=== PATIENT | female | born 1950 | race American Indian/Alaskan Native ===

== ENCOUNTER 2017-11-03 06:06 | Day surgery (SDC) | payer MEDICARE ==
[2017-11-03] MEDS ORDERED: ECOTRIN PO ONE ×2 (06:36→06:42)
[2017-11-03] MEDS ORDERED: NACL 0.9% 500 ML 500 ML ONE (06:41)
[2017-11-03] MEDS ORDERED: NACL 0.9% 500 ML 500 ML IV SCH (07:00)
[2017-11-03 07:05] LABS: Basophils # (Auto) 0.2 K/mm3 (0.0-0.1); Basophils % (Auto) 1.4 % (0.0-1.8); Eosinophils # (Auto) 0.2 K/mm3 (0.0-0.4); Hematocrit 39.2 % (30.3-42.9); Hemoglobin 13.4 gm/dl (10.1-14.3); Lymphocytes # (Auto) 4.1 K/mm3 (1.2-5.4); Lymphocytes % (Auto) 36.2 % (13.4-35.0); Mean Corpuscular HGB Conc 34 % (30-34); Mean Corpuscular Hemoglobin 33 pg (28-32); Mean Corpuscular Volume 97 fl (79-97); Monocytes % (Auto) 8.8 % (0.0-7.3); Platelet Count 305 K/mm3 (140-440); Red Blood Count 4.05 M/mm3 (3.65-5.03); Red Cell Distribution Width 13.9 % (13.2-15.2)
[2017-11-03 07:19] LABS: INR 0.88 (0.87-1.13)
[2017-11-03 07:34] LABS: BUN/Creatinine Ratio 19; Blood Urea Nitrogen 19 mg/dL (7-17); Calcium 9.1 mg/dL (8.4-10.2); Hemolysis Index 17
[2017-11-03] MEDS ORDERED: HEPARIN/NS 5000 UNIT/500ML(CATH LAB) 1,000 ML IR ONE (08:30)
[2017-11-03] MEDS ORDERED: NITROGLYCERIN SYRINGE 0 ML ONE (08:31)
[2017-11-03] MEDS: KCL 10 MEQ in NACL 0.9% 100 ML IV SCH ×3 (08:36→09:53)
[2017-11-03] MEDS ORDERED: KCL 10MEQ/100ML 10 MEQ/100 ML BAG IV SCH (09:00)
[2017-11-03] MEDS: XYLOCAINE 2% INFILTRATI ONE ×2 (09:37→09:49)
[2017-11-03] MEDS: SUBLIMAZE ONE ×3 (09:37→09:55)
[2017-11-03] MEDS: VERSED ONE ×2 (09:37→09:47)
[2017-11-03] MEDS: HEPARIN 10,000 UNITS/10 ML ONE ×2 (09:38→09:50)
[2017-11-03] MEDS: CALAN ONE ×2 (09:38→09:50)
--- NOTE | 2017-11-03 11:12 | Cardiac Catherization Report ---
CARDIAC CATHETERIZATION INDICATION FOR PROCEDURE: The patient is a 67-year-old -[place] female with history of chest pains known to have essential hypertension, hyperlipidemia, palpitations, CHF, septal aneurysm is having atypical chest pains, was noted to have mildly abnormal nuclear imaging showing small partially reversible apical ischemia; hence, scheduled for cardiac catheterization for definitive diagnosis and treatment. The patient's potassium was found to be low at 2.8 prior to the procedure. Hence, her potassium was supplemented with 40 mEq IV. The patient is aware of the procedure, potential complications, and alternatives of therapy available. DESCRIPTION OF PROCEDURE: The patient was brought to the catheterization laboratory in a fasting condition. The right wrist area and forearm thoroughly cleansed with Betadine solution. After evaluating for appropriateness for IV sedation, the patient was sedated with IV Versed and fentanyl. Subsequently, right radial artery puncture was made using 21-gauge arterial puncture needle. A 5-Russian sheath was introduced. The patient received 5 mg of intra-arterial verapamil and 3000 units of intravenous heparin. Subsequently, using 5-Russian multipurpose catheter, angiograms of the right coronary artery were obtained in ADELA and SIMON projections followed by left ventriculogram done in SIMON projection using hand injection. Subsequently, this catheter was changed with a 5-Russian TIG catheter and angiograms of the left coronary artery were obtained in multiple views. At the end of the procedure, catheter and sheath were removed. Good hemostasis was achieved with pressure bandage. The patient tolerated the procedure well. The patient was sedated with IV Versed and fentanyl at 9:47 a.m. and was monitored by electrocardiogram, pulse oximetry, and noninvasive blood pressure measurement till the patient was transferred to the outpatient area. Sedation monitoring was completed at 9:55 a.m. The patient tolerated the sedation well, was able to talk normally and breath normally at the end of the procedure. Vital signs have been stable. Following findings were noted. HEMODYNAMICS: Opening aortic pressure 156/89, left ventricular pressure 162/33 mm hg. Left ventriculogram, estimated Ejection fraction 70%. No gradient across the aortic valve. Left ventriculogram done in SIMON projection showed normal sized left ventricle with excellent contractility, ejection fraction 70%. Only limited amount of dye was injected and mitral regurgitation could not be evaluated. Right coronary artery dominant vessel arises normally from right coronary cusp. This is large, very tortuous vessel, but angiographically smooth and normal. Left coronary artery arises normally from left coronary cusp. Left main without significant disease . LAD curves around the apex. LAD itself without significant disease. Multiple diagonal branches noted. Proximal diagonal branch shows minimal smooth irregularity 5% also at the ostium. Circumflex artery and its branches are tortuous, but angiographically smooth and normal. FINAL IMPRESSION: 1. Excellent LV function with elevated end diastolic pressure of 33 mmHg. Left ventricular systolic function showed ejection fraction to be 70%. 2. Essentially normal coronary anatomy except for very minimal irregularities in the diagonal branch. Arteries are very tortuous and there is sluggish flow noted in the coronaries, suggesting the patient may have microvascular dysfunction. The patient tolerated the procedure well. No untoward complications were noted. The patient will be transferred to the recovery area in stable condition where she will be monitored and repeat potassium level will be obtained. When she is stable, she will be discharged home, will be continued on risk factor modification and medical therapy. Findings were explained to the patient and family. [facility]# [id number] GRICELDA/JEANNE GILLETTE
[2017-11-03 12:42] VITALS: BP 161/88
--- NOTE | 2017-11-04 14:13 | Short Stay Summary ---
Short Stay Documentation Date of service: 11/03/17 - History H&P: obtained from office - Allergies and Medications Current Medications: Allergies No Known Allergies Allergy (Verified 11/03/17 06:35) Home Medications Medication Instructions Recorded Confirmed Last Taken Type Clonidine HCl [Catapres] 0.3 mg PO BID 11/03/17 11/03/17 11/02/[address] [Voltaren Dr] 75 mg PO BID 11/03/17 11/03/17 11/02/17 History Famotidine [Pepcid] 20 mg PO PRN PRN 11/03/17 11/03/17 1 Week Ago History ~10/27/17 ISOSORBIDE MONOnitrate [Imdur ER] 30 mg PO DAILY 11/03/17 11/03/17 11/02/17 History Meclizine [Antivert] 12.5 mg PO PRN PRN 11/03/17 11/03/17 10/31/17 History Metoprolol Xl [Metoprolol 50 mg PO QDAY 11/03/17 11/03/17 11/02/17 History SUCCINATE ER TAB] Potassium Chloride [K-Dur] 20 meq PO QDAY #30 tablet 11/03/17 Unknown Rx Triamter/Hctz 37.5-25 mg 1 tab PO QDAY 11/03/17 11/03/17 11/02/17 History [Maxzide-25] - Brief post op/procedure progress note Date of procedure: 11/03/17 Pre-op diagnosis: chest pain, abnormal stress test Post-op diagnosis: same Procedure: LHC - see cath report Anesthesia: local Estimated blood loss: none Condition: stable - Disposition Condition at discharge: Stable Disposition: DC-[id number] TO HOME OR SELFCARE - Discharge Diagnoses (1) Atypical chest pain Status: Chronic (2) Abnormal stress test Status: Chronic (3) HTN (hypertension) Status: Chronic (4) Hyperlipidemia Status: Chronic Short Stay Discharge Plan Activity: advance as tolerated Diet: low fat, low cholesterol, low salt Wound: open to air, keep clean and dry, per your surgeon's advice Additional Instructions: Make follow up appointment [facility] Dr[facility] Wilson in 7days [phone] Follow up with: NORMA WHATLEY NP-C [Primary Care Provider] - 7 Days Forms: CardCath PCI D/C Instructions, Post Sedation D/C Instructions Prescriptions: Potassium Chloride [K-Dur] 20 meq PO QDAY #30 tablet
== END 2017-11-03 13:00 | disposition home or self-care (01) ==
LOC: CATHLABREC 06:06
PROVIDERS: ATTEND Internal Medicine
DX: R07.9 Chest pain, unspecified (principal); R06.02 Shortness of breath; I10 Essential (primary) hypertension; E78.5 Hyperlipidemia, unspecified; Z79.899 Other long term (current) drug therapy; Z87.891 Personal history of nicotine dependence
CPT/HCPCS: 36415; 80048; 84132; 85025; 85610; 85730; 93005; 93010; 93458; 99156; C1887; C1894; J1644; J2250; J3010; J3480; J7040; Q9967